=== PATIENT | female | born 2000 | race American Indian/Alaskan Native ===

== ENCOUNTER 2021-04-25 19:57 | Emergency (ER) | payer BC ==
--- NOTE | 2021-04-25 20:37 | Emergency Department Report ---
ED General Adult HPI - General Chief complaint: Upper Respiratory Infection Stated complaint: RESPIRATORY INFECTION Time Seen by Provider: 04/25/21 20:25 Source: patient Mode of arrival: Ambulatory Limitations: No Limitations - History of Present Illness Initial comments: 20-year-old female patient presents to the emergency department with complaints of nonproductive cough for 4 weeks. Patient has taken multiple vtsy-lyg-ntthosl antihistamines and cough medicines with limited relief. Patient has tested negative for COVID-19 on multiple occasions since onset of her cough. Patient has not been on steroids or antibiotics since her symptoms began. No recent travel. No known sick contacts. Patient does not smoke cigarettes. Today, patient tasted "metal in blood" in her mouth following a coughing spell, prompting her to come to the emergency department. No known history of pre- existing lung disease. Denies fever, chills, wheezing, shortness of breath, chest pain, vomiting. Denies all other complaints at this time. - Related Data Previous Rx's Medication Instructions Recorded Last Taken Type Azithromycin [Zithromax] 250 mg PO DAILY #6 tablet 04/25/21 Unknown Rx Allergies Allergy/AdvReac Type Severity Reaction Status Date / Time No Known Allergies Allergy Unverified 04/25/21 20:22 ED Review of Systems ROS: Stated complaint: RESPIRATORY INFECTION Other details as noted in HPI Other: GENERAL: Negative for fever, chills, weight change, anorexia, fatigue. ENT: Negative for ear pain, difficulty hearing, sore throat, nasal congestion, epistaxis. CARDIOVASCULAR: Negative for chest pain, palpitations, lower extremity swelling. PULMONARY: Positive for cough. GASTROINTESTINAL: Negative for abdominal pain, nausea, vomiting, diarrhea, constipation. MUSCULOSKELETAL: Negative for joint pain, joint swelling, myalgias, back pain, neck pain. NEUROLOGICAL: Negative for headache, seizure, syncope, paresthesias, weakness. INTEGUMENTARY: Negative for erythema, rash, diaphoresis, laceration, ecchymosis. HEMATOLOGICAL: Negative for hemoptysis, hematemesis, hematochezia, hematuria. PSYCHIATRIC: Negative for hallucinations, suicidal ideation, homicidal ideation, anxiety, depression. ED Past Medical Hx - Past Medical History Previous Medical History?: No - Surgical History Past Surgical History?: No - Medications Home Medications: Home Medications Medication Instructions Recorded Confirmed Last Taken Type Azithromycin [Zithromax] 250 mg PO DAILY #6 tablet 04/25/21 Unknown Rx ED Physical Exam - General Limitations: No Limitations - Other Other exam information: General: Awake and alert. No acute distress. Head: Atraumatic, normocephalic. Eyes: EOMI. Pupils are equal and round. Normal sclera and conjunctiva. ENT: Oral mucosa is moist. Normal pharyngeal exam. Neck: Supple. No lymphadenopathy. Pulmonary: No respiratory distress. Clear to auscultation bilaterally. Cardiac: Regular rate and rhythm. Pulses are palpable and equal bilaterally. No lower extremity cyanosis or edema. Skin: Warm and dry. No rashes. Abdomen: Soft, non-tender, non-protuberant. No guarding, rigidity, or rebound. Bowel sounds are normal. No organomegaly or masses noted. Back: Normal alignment. No CVA tenderness. Extremities: Symmetrical. Full range of motion intact. Neurological: Alert and oriented, appropriately interactive, no focal deficits. Psych: Cooperative. Appropriate mood and affect. Speech is evenly metered. Thoughts are logically construed. ED Course Vital Signs 04/25/21 20:21 Temperature 98.3 F Pulse Rate 95 H Respiratory 18 Rate Blood Pressure 155/91 O2 Sat by Pulse 100 Oximetry ED Medical Decision Making - Medical Decision Making Differential diagnosis including but not limited to: pneumonia, tuberculosis, pertussis, GERD, asthma, CHF, pleural effusion On reevaluation, patient remains stable. No hypoxia, no respiratory distress. Chest x-ray without acute process. Patient meets criteria for empiric antibiotics due to prolonged symptom duration > 14 days. Patient will be discharged home with prescription for Azithromycin and Tessalon Perles. Patient instructed to follow-up with primary care provider this week. Patient expressed understanding and is agreeable to plan of care. Disease transmission precautions discussed. Strict return precautions provided. Upon further interrogation, patient endorses use of vaping devices. Patient was informed of the possibility of pneumonitis/vape related lung injury. Patient was advised to discontinue using these products. Repeat exam is unremarkable and benign. History, exam, diagnostic testing, and current condition do not suggest worrisome pathology to warrant further testing, continued ED treatment, admission, or surgical evaluation at this point. Given the low probability of a significant medical illness, it would be more likely to result in harm than benefit to perform further testing at this stage. Discussed findings, presumptive diagnosis, need for follow-up and specific signs/symptoms that should prompt immediate return to the emergency department. Instructions were explained in detail to the patient in addition to giving written discharge information. Patient expressed understanding and was given the opportunity to ask questions, all of which were satisfactorily answered prior to discharge home. Critical care attestation.: If time is entered above; I have spent that time in minutes in the direct care of this critically ill patient, excluding procedure time. ED Disposition Clinical Impression: Cough present for greater than 3 weeks Disposition: HOME / SELF CARE / HOMELESS Is pt being admited?: No Does the pt Need Aspirin: No Condition: Stable Instructions: Cough, Adult Additional Instructions: Take Azithromycin with food as directed until complete. Increase your dietary intake of probiotic rich foods while taking this medication. Take Tessalon as directed for cough. Honey is an excellent natural cough suppressant. Please discontinue use of vaping products. Follow-up with primary care provider this week. Call tomorrow to schedule an appointment. See referral information below. Return to the emergency department immediately for new or worsening symptoms. Prescriptions: Azithromycin [Zithromax] 250 mg PO DAILY #6 tablet Referrals: MILANA COTE MD [Staff Physician] - 3-5 Days [facility] [Provider Group] - 3-5 Days Time of Disposition: 21:16
--- NOTE | 2021-04-25 20:48 | XRay Report ---
CHEST 2 VIEWS INDICATION / CLINICAL INFORMATION: cough x4 weeks, neg covid test. FINDINGS: SUPPORT DEVICES: None. HEART / MEDIASTINUM: No significant abnormality. LUNGS / PLEURA: No significant pulmonary or pleural abnormality. No pneumothorax. ADDITIONAL FINDINGS: No significant additional findings. IMPRESSION: 1. No acute findings. Signer Name: Toni Aguilar MD Signed: 04/25/2021 8:44 PM Workstation Name: [id number]
[2021-04-25 22:46] VITALS: BP 142/80
== END 2021-04-25 22:41 | disposition home or self-care (01) ==
LOC: ED 19:57
DX: R05.9 Cough, unspecified (principal)
CPT/HCPCS: 71046; 99283